=== PATIENT | male | born 1960 | race Two or more races ===

== ENCOUNTER 2021-03-25 13:28 | Inpatient (IN) | payer OTHER ==
[2021-03-25 15:23] VITALS: BMI 25.9
[2021-03-25] MEDS ORDERED: MAGNESIUM HYDROX 2400MG/30ML ORAL SUSPENSION 30 ML CUP PO PRN (16:11)
[2021-03-25] MEDS ORDERED: clonazePAM 0.5 MG ODT TABLETS SL PRN (16:11)
[2021-03-25] MEDS ORDERED: NALOXONE (NARCAN) HCL 4 MG/0.1 ML SPRAY NS PRN (16:11)
[2021-03-25] MEDS ORDERED: MAG HYDROX/AL HYDROX/SIMETH 30 ML UNIT-DOSE CUP PO PRN (16:11)
[2021-03-25] MEDS ORDERED: MAGNESIUM CITRATE 300 ML BOTTLE PO PRN (16:11)
[2021-03-25] MEDS ORDERED: cloNIDine HCL 0.1 MG TABLET PO PRN (16:11)
[2021-03-25] MEDS ORDERED: methaDONE HCL 10 MG TABLET (FOR DETOX USE ONLY) PO ONE (16:11)
[2021-03-25] MEDS ORDERED: NICOTINE 10 MG CARTRIDGE (INHALER) IH PRN (16:11)
[2021-03-25] MEDS ORDERED: MENTHOL/PHENOL 1 EACH UD MM PRN (16:11)
[2021-03-25] MEDS ORDERED: IBUPROFEN 400 MG TABLET (FP) PO PRN (16:11)
[2021-03-25] MEDS ORDERED: ONDANSETRON *ODT* 4 MG TABLET SL PRN (16:11)
[2021-03-25] MEDS ORDERED: BISMUTH SUBSALICYLATE 524 MG/30 ML PO PRN (16:11)
[2021-03-25] MEDS ORDERED: ACETAMINOPHEN 325 MG TABLET (FP) PO PRN ×2 (16:11)
[2021-03-25] MEDS: hydrOXYzine PAMOATE 25 MG CAPSULE (FP) PO SCH ×2 (17:44→22:13)
[2021-03-25] MEDS: NICOTINE 21 MG/24 HOURS TOPICAL PATCH TD SCH ×2 (18:08→18:29)
[2021-03-25] MEDS: THIAMINE HCL 100 MG TABLET (FP) PO SCH (22:13)
[2021-03-25] MEDS: MELATONIN 5 MG TABLETS PO SCH (22:13)
[2021-03-25] MEDS: diazePAM 5 MG TABLET PO PRN (22:17)
[2021-03-25] MEDS ORDERED: diazePAM 5 MG TABLET PO SCH (23:00)
[2021-03-26] MEDS: hydrOXYzine PAMOATE 25 MG CAPSULE (FP) PO SCH ×5 (06:20→22:31)
[2021-03-26] MEDS: diazePAM 5 MG TABLET PO PRN ×3 (06:22→23:04)
[2021-03-26] MEDS ORDERED: methaDONE HCL 10 MG TABLET (FOR DETOX USE ONLY) ONE ×2 (09:21→12:54)
[2021-03-26] MEDS: NICOTINE 21 MG/24 HOURS TOPICAL PATCH TD SCH (10:43)
[2021-03-26 11:43] LABS: HEMATOCRIT 40.4 % (35.4-49); HEMOGLOBIN 13.7 GM/dL (11.7-16.9); MCH 30.2 pg (25.7-33.7); MEAN CELL VOLUME 88.8 fl (80-96); MEAN PLT VOLUME 7.8 fl (7.5-11.1); PLATELET COUNT 258 10^3/uL (134-434); RBC 4.55 M/mm3 (4.00-5.60); RDW 12.8 % (11.9-15.9); WHITE BLOOD COUNT 13.5 K/mm3 (4.0-10.0)
[2021-03-26] MEDS: ASPIRIN 81 MG CHEWABLE TABLETS PO SCH (11:53)
[2021-03-26] MEDS: amLODIPine BESYLATE 10 MG TABLET (FP) PO SCH (11:53)
[2021-03-26] MEDS: LISINOPRIL 5 MG TABLET PO SCH (11:53)
[2021-03-26 12:02] LABS: CALCIUM 9.3 mg/dL (8.5-10.1)
[2021-03-26 12:03] LABS: ALBUMIN 3.5 g/dl (3.4-5.0); BLOOD UREA NITROGEN 15.6 mg/dL (7-18)
[2021-03-26 12:07] LABS: BILIRUBIN,TOTAL 0.6 mg/dL (0.2-1); TOT PROT 7.2 g/dl (6.4-8.2)
[2021-03-26] MEDS: metFORMIN HCL 500 MG TABLET (FP) PO SCH (17:37)
[2021-03-26] MEDS: INSULIN SLIDING SCALE (NOVOLOG) 1 VIAL SQ SCH ×2 (17:38→22:35)
[2021-03-26] MEDS: THIAMINE HCL 100 MG TABLET (FP) PO SCH (22:31)
[2021-03-26] MEDS: MELATONIN 5 MG TABLETS PO SCH (22:34)
[2021-03-27] MEDS ORDERED: diazePAM 5 MG TABLET PO SCH (06:00)
[2021-03-27] MEDS: hydrOXYzine PAMOATE 25 MG CAPSULE (FP) PO SCH ×5 (06:26→22:45)
[2021-03-27] MEDS: diazePAM 5 MG TABLET PO PRN ×4 (06:26→22:54)
[2021-03-27] MEDS: metFORMIN HCL 500 MG TABLET (FP) PO SCH ×2 (06:26→18:13)
[2021-03-27] MEDS: INSULIN SLIDING SCALE (NOVOLOG) 1 VIAL SQ SCH ×4 (06:30→22:49)
[2021-03-27] MEDS ORDERED: INSULIN SLIDING SCALE (NOVOLOG) 1 VIAL SQ ONE (07:34)
[2021-03-27] MEDS ORDERED: methaDONE HCL 10 MG TABLET (FOR DETOX USE ONLY) PO ONE (10:00)
[2021-03-27] MEDS: LISINOPRIL 5 MG TABLET PO SCH (10:23)
[2021-03-27] MEDS: ASPIRIN 81 MG CHEWABLE TABLETS PO SCH (10:23)
[2021-03-27] MEDS: NICOTINE 21 MG/24 HOURS TOPICAL PATCH TD SCH ×2 (10:23→10:25)
[2021-03-27] MEDS: amLODIPine BESYLATE 10 MG TABLET (FP) PO SCH (10:23)
[2021-03-27] MEDS: THIAMINE HCL 100 MG TABLET (FP) PO SCH (22:45)
[2021-03-27] MEDS: INSULIN (LEVEMIR) 100 UNITS/ML UNITS SQ SCH (22:45)
[2021-03-27] MEDS: MELATONIN 5 MG TABLETS PO SCH (22:45)
[2021-03-28] MEDS ORDERED: diazePAM 5 MG TABLET PO SCH (06:00)
[2021-03-28] MEDS: diazePAM 5 MG TABLET PO PRN (06:57)
[2021-03-28] MEDS: metFORMIN HCL 500 MG TABLET (FP) PO SCH ×2 (06:58→17:48)
[2021-03-28] MEDS: hydrOXYzine PAMOATE 25 MG CAPSULE (FP) PO SCH (06:58)
[2021-03-28] MEDS: INSULIN SLIDING SCALE (NOVOLOG) 1 VIAL SQ SCH ×4 (07:01→23:00)
[2021-03-28] MEDS ORDERED: INSULIN SLIDING SCALE (NOVOLOG) 1 VIAL SQ ONE (07:13)
[2021-03-28] MEDS ORDERED: methaDONE HCL 10 MG TABLET (FOR DETOX USE ONLY) ONE (08:43)
[2021-03-28] MEDS: NICOTINE 21 MG/24 HOURS TOPICAL PATCH TD SCH (10:27)
[2021-03-28] MEDS: ASPIRIN 81 MG CHEWABLE TABLETS PO SCH (10:28)
[2021-03-28] MEDS: amLODIPine BESYLATE 10 MG TABLET (FP) PO SCH (10:28)
[2021-03-28] MEDS: LISINOPRIL 5 MG TABLET PO SCH (10:28)
[2021-03-28] MEDS: hydrOXYzine PAMOATE 25 MG CAPSULE (FP) PO PRN (18:58)
[2021-03-28] MEDS: MELATONIN 5 MG TABLETS PO SCH (22:38)
[2021-03-28] MEDS: cloNIDine HCL 0.1 MG TABLET PO PRN (22:38)
[2021-03-28] MEDS: METHOCARBAMOL 500 MG TABLET PO PRN (22:38)
[2021-03-28] MEDS: THIAMINE HCL 100 MG TABLET (FP) PO SCH (22:38)
[2021-03-28] MEDS: INSULIN (LEVEMIR) 100 UNITS/ML UNITS SQ SCH (22:56)
[2021-03-29] MEDS ORDERED: diazePAM 5 MG TABLET PO ONE (06:00)
[2021-03-29] MEDS: hydrOXYzine PAMOATE 25 MG CAPSULE (FP) PO PRN (06:37)
[2021-03-29] MEDS: METHOCARBAMOL 500 MG TABLET PO PRN (06:38)
[2021-03-29] MEDS: metFORMIN HCL 500 MG TABLET (FP) PO SCH ×2 (06:38→17:48)
[2021-03-29] MEDS: INSULIN SLIDING SCALE (NOVOLOG) 1 VIAL SQ SCH ×4 (06:45→23:27)
[2021-03-29] MEDS ORDERED: INSULIN SLIDING SCALE (NOVOLOG) 1 VIAL SQ ONE (06:56)
[2021-03-29] MEDS ORDERED: methaDONE HCL 10 MG TABLET (FOR DETOX USE ONLY) PO ONE (10:00)
[2021-03-29] MEDS: LISINOPRIL 5 MG TABLET PO SCH (10:22)
[2021-03-29] MEDS: ASPIRIN 81 MG CHEWABLE TABLETS PO SCH (10:23)
[2021-03-29] MEDS: amLODIPine BESYLATE 10 MG TABLET (FP) PO SCH (10:23)
[2021-03-29] MEDS: NICOTINE 21 MG/24 HOURS TOPICAL PATCH TD SCH (10:24)
[2021-03-29] MEDS: INSULIN (LEVEMIR) 100 UNITS/ML UNITS SQ SCH (23:25)
[2021-03-29] MEDS: MELATONIN 5 MG TABLETS PO SCH (23:26)
[2021-03-29] MEDS: THIAMINE HCL 100 MG TABLET (FP) PO SCH (23:27)
[2021-03-30] MEDS: THIAMINE HCL 100 MG TABLET (FP) PO SCH (00:02)
[2021-03-30] MEDS: MELATONIN 5 MG TABLETS PO SCH (00:02)
[2021-03-30] MEDS: METHOCARBAMOL 500 MG TABLET PO PRN (00:03)
[2021-03-30] MEDS: INSULIN SLIDING SCALE (NOVOLOG) 1 VIAL SQ SCH ×2 (00:04→07:07)
[2021-03-30] MEDS: INSULIN (LEVEMIR) 100 UNITS/ML UNITS SQ SCH (00:06)
[2021-03-30] MEDS: metFORMIN HCL 500 MG TABLET (FP) PO SCH (06:06)
[2021-03-30 09:31] VITALS: BP 106/59; PULSE 71; TEMP 97.5
[2021-03-30] MEDS: ASPIRIN 81 MG CHEWABLE TABLETS PO SCH (09:31)
[2021-03-30] MEDS: LISINOPRIL 5 MG TABLET PO SCH (09:31)
[2021-03-30] MEDS: amLODIPine BESYLATE 10 MG TABLET (FP) PO SCH (09:31)
[2021-03-30] MEDS: cloNIDine HCL 0.1 MG TABLET PO PRN (09:33)
== END 2021-03-30 09:45 | disposition other institution (70) | DRG 773 ==
LOC: YASAS 13:28 → Y3N 15:55
PROVIDERS: ADMIT Allergy & Immunology; ATTEND Allergy & Immunology
PROC: HZ2ZZZZ Detoxification Services for Substance Abuse Treatment (ICD-10-PCS; principal; 2021-03-25)
DX: F10.230 Alcohol dependence with withdrawal, uncomplicated (principal); F11.23 Opioid dependence with withdrawal; F14.20 Cocaine dependence, uncomplicated; F17.210 Nicotine dependence, cigarettes, uncomplicated; I10 Essential (primary) hypertension; E11.65 Type 2 diabetes mellitus with hyperglycemia; Z79.4 Long term (current) use of insulin
CPT/HCPCS: 36415; 80053; 82962; 84132; 85027; 86780; C9803; J0735; U0003; U0005

== ENCOUNTER 2021-03-30 09:14 | Inpatient (IN) | payer OTHER ==
[2021-03-30] MEDS ORDERED: P-EPHED 60MG/TRIPROLIDI 2.5MG TABLET PO PRN (11:09)
[2021-03-30] MEDS ORDERED: MAGNESIUM CITRATE 300 ML BOTTLE PO PRN (11:09)
[2021-03-30] MEDS ORDERED: LOPERAMIDE HCL 2 MG CAPSULE PO PRN (11:09)
[2021-03-30] MEDS ORDERED: MENTHOL/PHENOL 1 EACH UD MM PRN (11:09)
[2021-03-30] MEDS: hydrOXYzine PAMOATE 25 MG CAPSULE (FP) PO PRN ×2 (12:34→18:16)
[2021-03-30] MEDS: METHOCARBAMOL 500 MG TABLET PO PRN ×2 (12:34→18:16)
[2021-03-30] MEDS: IBUPROFEN 400 MG TABLET (FP) PO PRN (12:35)
[2021-03-30] MEDS: INSULIN SLIDING SCALE (NOVOLOG) 1 VIAL SQ SCH ×2 (16:52→21:45)
[2021-03-30] MEDS: NICOTINE 10 MG CARTRIDGE (INHALER) IH PRN (16:52)
[2021-03-30] MEDS ORDERED: INSULIN (NOVOLOG) ASPART 100 UNITS/ML 10ML VIAL ONE ×2 (16:58→21:47)
[2021-03-30] MEDS: MELATONIN 5 MG TABLETS PO SCH (21:42)
[2021-03-30] MEDS: THIAMINE HCL 100 MG TABLET (FP) PO SCH (21:42)
[2021-03-30] MEDS: metFORMIN HCL 500 MG TABLET (FP) PO SCH (21:43)
[2021-03-30] MEDS: INSULIN (LEVEMIR) 100 UNITS/ML UNITS SQ SCH (21:45)
[2021-03-31] MEDS: INSULIN SLIDING SCALE (NOVOLOG) 1 VIAL SQ SCH ×4 (06:40→21:00)
[2021-03-31] MEDS: MAG HYDROX/AL HYDROX/SIMETH 30 ML UNIT-DOSE CUP PO PRN (07:34)
[2021-03-31] MEDS: IBUPROFEN 400 MG TABLET (FP) PO PRN ×2 (07:34→16:34)
[2021-03-31] MEDS: amLODIPine BESYLATE 10 MG TABLET (FP) PO SCH (09:10)
[2021-03-31] MEDS: METHOCARBAMOL 500 MG TABLET PO PRN ×4 (09:10→21:00)
[2021-03-31] MEDS: metFORMIN HCL 500 MG TABLET (FP) PO SCH ×2 (09:10→21:00)
[2021-03-31] MEDS: ASPIRIN 81 MG CHEWABLE TABLETS PO SCH (09:10)
[2021-03-31] MEDS: hydrOXYzine PAMOATE 25 MG CAPSULE (FP) PO PRN ×2 (09:10→14:04)
[2021-03-31] MEDS: PRENATAL VITAMINS W/ FOLIC ACID TABLET (FP) PO SCH (09:10)
[2021-03-31] MEDS: NICOTINE 21 MG/24 HOURS TOPICAL PATCH TD SCH (09:10)
[2021-03-31] MEDS: LISINOPRIL 5 MG TABLET PO SCH (09:10)
[2021-03-31] MEDS ORDERED: INSULIN (NOVOLOG) ASPART 100 UNITS/ML 10ML VIAL ONE ×2 (11:52→16:45)
[2021-03-31] MEDS: ACETAMINOPHEN 325 MG TABLET (FP) PO PRN ×2 (11:55→18:42)
[2021-03-31] MEDS: GABAPENTIN 100 MG CAPSULE PO SCH (21:00)
[2021-03-31] MEDS: INSULIN (LEVEMIR) 100 UNITS/ML UNITS SQ SCH (21:00)
[2021-03-31] MEDS: THIAMINE HCL 100 MG TABLET (FP) PO SCH (21:00)
[2021-03-31] MEDS: MELATONIN 5 MG TABLETS PO SCH (21:00)
[2021-03-31] MEDS: MAGNESIUM HYDROX 2400MG/30ML ORAL SUSPENSION 30 ML CUP PO PRN (22:55)
[2021-04-01] MEDS: hydrOXYzine PAMOATE 25 MG CAPSULE (FP) PO PRN ×2 (00:42→09:31)
[2021-04-01] MEDS: GABAPENTIN 100 MG CAPSULE PO SCH (06:29)
[2021-04-01] MEDS: INSULIN SLIDING SCALE (NOVOLOG) 1 VIAL SQ SCH ×4 (06:30→21:24)
[2021-04-01] MEDS: PRENATAL VITAMINS W/ FOLIC ACID TABLET (FP) PO SCH (09:31)
[2021-04-01] MEDS: ASPIRIN 81 MG CHEWABLE TABLETS PO SCH (09:31)
[2021-04-01] MEDS: amLODIPine BESYLATE 10 MG TABLET (FP) PO SCH (09:31)
[2021-04-01] MEDS: LISINOPRIL 5 MG TABLET PO SCH (09:31)
[2021-04-01] MEDS: NICOTINE 21 MG/24 HOURS TOPICAL PATCH TD SCH (09:31)
[2021-04-01] MEDS: metFORMIN HCL 500 MG TABLET (FP) PO SCH ×2 (09:32→22:36)
[2021-04-01] MEDS: METHOCARBAMOL 500 MG TABLET PO PRN (09:33)
[2021-04-01] MEDS: MAGNESIUM HYDROX 2400MG/30ML ORAL SUSPENSION 30 ML CUP PO PRN (10:54)
[2021-04-01] MEDS ORDERED: INSULIN (NOVOLOG) ASPART 100 UNITS/ML 10ML VIAL ONE (12:03)
[2021-04-01] MEDS: GABAPENTIN 400 MG CAPSULE PO SCH ×2 (13:12→21:27)
[2021-04-01] MEDS: BACLOFEN 10 MG TABLET (FP) PO SCH ×2 (13:12→21:27)
[2021-04-01] MEDS ORDERED: PT OWN MED DRAWER 7, Y5N ONE (15:13)
[2021-04-01] MEDS ORDERED: BUPRENORPHINE/NALOXONE 4 MG/1 MG FILM PACKET SL ONE (16:00)
[2021-04-01] MEDS: IBUPROFEN 400 MG TABLET (FP) PO PRN (18:57)
[2021-04-01] MEDS: THIAMINE HCL 100 MG TABLET (FP) PO SCH (21:27)
[2021-04-01] MEDS: MELATONIN 5 MG TABLETS PO SCH (21:27)
[2021-04-01] MEDS: INSULIN (LEVEMIR) 100 UNITS/ML UNITS SQ SCH (22:36)
[2021-04-02] MEDS: GABAPENTIN 400 MG CAPSULE PO SCH ×3 (06:51→21:43)
[2021-04-02] MEDS: BACLOFEN 10 MG TABLET (FP) PO SCH ×3 (06:51→21:43)
[2021-04-02] MEDS: INSULIN SLIDING SCALE (NOVOLOG) 1 VIAL SQ SCH ×4 (06:53→21:44)
[2021-04-02] MEDS: guaiFENesin 200 MG/10 ML 10 ML UNIT-DOSE CUPS PO PRN (06:54)
[2021-04-02] MEDS: PRENATAL VITAMINS W/ FOLIC ACID TABLET (FP) PO SCH (09:28)
[2021-04-02] MEDS: NICOTINE 21 MG/24 HOURS TOPICAL PATCH TD SCH (09:29)
[2021-04-02] MEDS: amLODIPine BESYLATE 10 MG TABLET (FP) PO SCH (09:29)
[2021-04-02] MEDS: metFORMIN HCL 500 MG TABLET (FP) PO SCH ×2 (09:29→21:43)
[2021-04-02] MEDS: LISINOPRIL 5 MG TABLET PO SCH (09:29)
[2021-04-02] MEDS: ASPIRIN 81 MG CHEWABLE TABLETS PO SCH (09:29)
[2021-04-02] MEDS ORDERED: BUPRENORPHINE/NALOXONE 4 MG/1 MG FILM PACKET SL SCH (10:00)
[2021-04-02 10:21] LABS: BASO % 0.3 % (0-2.0); EOS % 3.8 % (0-4.5); HEMATOCRIT 43.4 % (35.4-49); LYMPH % 26.4 % (8-40); MCH 30.2 pg (25.7-33.7); MCHC 34.5 g/dl (32.0-35.9); MEAN CELL VOLUME 87.6 fl (80-96); MEAN PLT VOLUME 7.7 fl (7.5-11.1); MONO % 7.2 % (3.8-10.2); NEUT % 62.3 % (42.8-82.8); PLATELET COUNT 273 10^3/uL (134-434); RBC 4.95 M/mm3 (4.00-5.60); RDW 12.8 % (11.9-15.9); WHITE BLOOD COUNT 11.1 K/mm3 (4.0-10.0)
[2021-04-02] MEDS ORDERED: INSULIN (NOVOLOG) ASPART 100 UNITS/ML 10ML VIAL ONE (12:05)
[2021-04-02] MEDS: IBUPROFEN 400 MG TABLET (FP) PO PRN (12:08)
[2021-04-02] MEDS ORDERED: BUPRENORPHINE/NALOXONE 4 MG/1 MG FILM PACKET SL ONE (15:48)
[2021-04-02] MEDS: MELATONIN 5 MG TABLETS PO SCH (21:43)
[2021-04-02] MEDS: THIAMINE HCL 100 MG TABLET (FP) PO SCH (21:43)
[2021-04-02] MEDS: INSULIN (LEVEMIR) 100 UNITS/ML UNITS SQ SCH (21:44)
[2021-04-03] MEDS: GABAPENTIN 400 MG CAPSULE PO SCH ×3 (06:47→21:24)
[2021-04-03] MEDS: BACLOFEN 10 MG TABLET (FP) PO SCH ×3 (06:47→21:24)
[2021-04-03] MEDS: INSULIN SLIDING SCALE (NOVOLOG) 1 VIAL SQ SCH ×4 (06:49→21:26)
[2021-04-03] MEDS: metFORMIN HCL 500 MG TABLET (FP) PO SCH ×2 (10:04→21:24)
[2021-04-03] MEDS: LISINOPRIL 5 MG TABLET PO SCH (10:04)
[2021-04-03] MEDS: BUPRENORPHINE/NALOXONE 8 MG/2 MG FILM PACKET SL SCH (10:04)
[2021-04-03] MEDS: amLODIPine BESYLATE 10 MG TABLET (FP) PO SCH (10:04)
[2021-04-03] MEDS: PRENATAL VITAMINS W/ FOLIC ACID TABLET (FP) PO SCH (10:04)
[2021-04-03] MEDS: ASPIRIN 81 MG CHEWABLE TABLETS PO SCH (10:04)
[2021-04-03] MEDS: hydrOXYzine PAMOATE 25 MG CAPSULE (FP) PO PRN (10:06)
[2021-04-03] MEDS: IBUPROFEN 400 MG TABLET (FP) PO PRN ×2 (10:06→16:24)
[2021-04-03] MEDS: NICOTINE 21 MG/24 HOURS TOPICAL PATCH TD SCH (10:50)
[2021-04-03] MEDS: MELATONIN 5 MG TABLETS PO SCH (21:24)
[2021-04-03] MEDS: THIAMINE HCL 100 MG TABLET (FP) PO SCH (21:24)
[2021-04-03] MEDS: INSULIN (LEVEMIR) 100 UNITS/ML UNITS SQ SCH (21:26)
[2021-04-03] MEDS: MAG HYDROX/AL HYDROX/SIMETH 30 ML UNIT-DOSE CUP PO PRN (21:29)
[2021-04-03] MEDS ORDERED: INSULIN (NOVOLOG) ASPART 100 UNITS/ML 10ML VIAL ONE (21:48)
[2021-04-04] MEDS: BACLOFEN 10 MG TABLET (FP) PO SCH ×3 (06:47→21:17)
[2021-04-04] MEDS: GABAPENTIN 400 MG CAPSULE PO SCH ×3 (06:47→21:17)
[2021-04-04] MEDS: INSULIN SLIDING SCALE (NOVOLOG) 1 VIAL SQ SCH ×4 (06:48→21:19)
[2021-04-04] MEDS: hydrOXYzine PAMOATE 25 MG CAPSULE (FP) PO PRN (10:11)
[2021-04-04] MEDS: NICOTINE 21 MG/24 HOURS TOPICAL PATCH TD SCH (10:11)
[2021-04-04] MEDS: PRENATAL VITAMINS W/ FOLIC ACID TABLET (FP) PO SCH (10:11)
[2021-04-04] MEDS: ASPIRIN 81 MG CHEWABLE TABLETS PO SCH (10:11)
[2021-04-04] MEDS: BUPRENORPHINE/NALOXONE 8 MG/2 MG FILM PACKET SL SCH (10:11)
[2021-04-04] MEDS: LISINOPRIL 5 MG TABLET PO SCH (10:11)
[2021-04-04] MEDS: amLODIPine BESYLATE 10 MG TABLET (FP) PO SCH (10:11)
[2021-04-04] MEDS: metFORMIN HCL 500 MG TABLET (FP) PO SCH ×2 (10:11→21:17)
[2021-04-04] MEDS: IBUPROFEN 400 MG TABLET (FP) PO PRN ×2 (10:13→16:36)
[2021-04-04] MEDS ORDERED: INSULIN (NOVOLOG) ASPART 100 UNITS/ML 10ML VIAL ONE ×3 (12:17→21:56)
[2021-04-04] MEDS: MELATONIN 5 MG TABLETS PO SCH (21:17)
[2021-04-04] MEDS: THIAMINE HCL 100 MG TABLET (FP) PO SCH (21:17)
[2021-04-04] MEDS: INSULIN (LEVEMIR) 100 UNITS/ML UNITS SQ SCH (21:19)
[2021-04-05] MEDS: BACLOFEN 10 MG TABLET (FP) PO SCH (06:34)
[2021-04-05] MEDS: GABAPENTIN 400 MG CAPSULE PO SCH ×3 (06:34→21:29)
[2021-04-05] MEDS ORDERED: INSULIN (NOVOLOG) ASPART 100 UNITS/ML 10ML VIAL ONE ×3 (07:01→21:55)
[2021-04-05] MEDS: INSULIN SLIDING SCALE (NOVOLOG) 1 VIAL SQ SCH ×4 (07:36→21:35)
[2021-04-05] MEDS: NICOTINE 21 MG/24 HOURS TOPICAL PATCH TD SCH (09:52)
[2021-04-05] MEDS: PRENATAL VITAMINS W/ FOLIC ACID TABLET (FP) PO SCH (09:52)
[2021-04-05] MEDS: metFORMIN HCL 500 MG TABLET (FP) PO SCH ×2 (09:53→21:29)
[2021-04-05] MEDS: ASPIRIN 81 MG CHEWABLE TABLETS PO SCH (09:53)
[2021-04-05] MEDS: LISINOPRIL 5 MG TABLET PO SCH (09:53)
[2021-04-05] MEDS: amLODIPine BESYLATE 10 MG TABLET (FP) PO SCH (09:53)
[2021-04-05] MEDS: BUPRENORPHINE/NALOXONE 12 MG-3 MG SL FILM PACKET SL SCH (10:43)
[2021-04-05] MEDS: METHOCARBAMOL 500 MG TABLET PO SCH ×2 (14:36→21:29)
[2021-04-05] MEDS: MAGNESIUM HYDROX 2400MG/30ML ORAL SUSPENSION 30 ML CUP PO PRN (16:31)
[2021-04-05] MEDS: THIAMINE HCL 100 MG TABLET (FP) PO SCH (21:29)
[2021-04-05] MEDS: MELATONIN 5 MG TABLETS PO SCH (21:29)
[2021-04-05] MEDS: NICOTINE 10 MG CARTRIDGE (INHALER) IH PRN (21:30)
[2021-04-05] MEDS: INSULIN (LEVEMIR) 100 UNITS/ML UNITS SQ SCH (21:34)
[2021-04-06] MEDS: GABAPENTIN 400 MG CAPSULE PO SCH ×3 (06:38→21:16)
[2021-04-06] MEDS: METHOCARBAMOL 500 MG TABLET PO SCH ×3 (06:38→21:16)
[2021-04-06] MEDS: INSULIN SLIDING SCALE (NOVOLOG) 1 VIAL SQ SCH ×4 (06:40→21:19)
[2021-04-06] MEDS: metFORMIN HCL 500 MG TABLET (FP) PO SCH ×2 (10:07→21:16)
[2021-04-06] MEDS: amLODIPine BESYLATE 10 MG TABLET (FP) PO SCH (10:07)
[2021-04-06] MEDS: NICOTINE 21 MG/24 HOURS TOPICAL PATCH TD SCH (10:07)
[2021-04-06] MEDS: BUPRENORPHINE/NALOXONE 12 MG-3 MG SL FILM PACKET SL SCH (10:07)
[2021-04-06] MEDS: PRENATAL VITAMINS W/ FOLIC ACID TABLET (FP) PO SCH (10:07)
[2021-04-06] MEDS: ASPIRIN 81 MG CHEWABLE TABLETS PO SCH (10:07)
[2021-04-06] MEDS: LISINOPRIL 5 MG TABLET PO SCH (10:08)
[2021-04-06] MEDS: IBUPROFEN 400 MG TABLET (FP) PO PRN (10:10)
[2021-04-06] MEDS: NICOTINE 10 MG CARTRIDGE (INHALER) IH PRN ×2 (12:07→20:52)
[2021-04-06] MEDS: THIAMINE HCL 100 MG TABLET (FP) PO SCH (21:16)
[2021-04-06] MEDS: MELATONIN 5 MG TABLETS PO SCH (21:16)
[2021-04-06] MEDS: INSULIN (LEVEMIR) 100 UNITS/ML UNITS SQ SCH (21:17)
[2021-04-07] MEDS: METHOCARBAMOL 500 MG TABLET PO SCH ×3 (06:26→21:41)
[2021-04-07] MEDS: GABAPENTIN 400 MG CAPSULE PO SCH ×3 (06:26→21:37)
[2021-04-07] MEDS: NICOTINE 10 MG CARTRIDGE (INHALER) IH PRN ×5 (06:30→21:42)
[2021-04-07] MEDS: INSULIN SLIDING SCALE (NOVOLOG) 1 VIAL SQ SCH ×4 (07:46→21:38)
[2021-04-07] MEDS: PRENATAL VITAMINS W/ FOLIC ACID TABLET (FP) PO SCH (09:49)
[2021-04-07] MEDS: BUPRENORPHINE/NALOXONE 12 MG-3 MG SL FILM PACKET SL SCH (09:49)
[2021-04-07] MEDS: NICOTINE 21 MG/24 HOURS TOPICAL PATCH TD SCH (09:49)
[2021-04-07] MEDS: LISINOPRIL 5 MG TABLET PO SCH (09:49)
[2021-04-07] MEDS: metFORMIN HCL 500 MG TABLET (FP) PO SCH ×2 (09:49→21:37)
[2021-04-07] MEDS: amLODIPine BESYLATE 10 MG TABLET (FP) PO SCH (09:49)
[2021-04-07] MEDS: ASPIRIN 81 MG CHEWABLE TABLETS PO SCH (09:50)
[2021-04-07] MEDS: IBUPROFEN 400 MG TABLET (FP) PO PRN ×2 (13:36→19:48)
[2021-04-07] MEDS: guaiFENesin 200 MG/10 ML 10 ML UNIT-DOSE CUPS PO PRN (14:21)
[2021-04-07] MEDS: ACETAMINOPHEN 325 MG TABLET (FP) PO PRN (16:49)
[2021-04-07] MEDS: THIAMINE HCL 100 MG TABLET (FP) PO SCH (21:36)
[2021-04-07] MEDS: MELATONIN 5 MG TABLETS PO SCH (21:36)
[2021-04-07] MEDS: INSULIN (LEVEMIR) 100 UNITS/ML UNITS SQ SCH (21:37)
[2021-04-08] MEDS: GABAPENTIN 400 MG CAPSULE PO SCH ×3 (06:43→21:18)
[2021-04-08] MEDS: METHOCARBAMOL 500 MG TABLET PO SCH (06:43)
[2021-04-08] MEDS: INSULIN SLIDING SCALE (NOVOLOG) 1 VIAL SQ SCH ×4 (07:46→21:20)
[2021-04-08] MEDS: LISINOPRIL 5 MG TABLET PO SCH (10:10)
[2021-04-08] MEDS: PRENATAL VITAMINS W/ FOLIC ACID TABLET (FP) PO SCH (10:10)
[2021-04-08] MEDS: metFORMIN HCL 500 MG TABLET (FP) PO SCH ×2 (10:11→21:18)
[2021-04-08] MEDS: ASPIRIN 81 MG CHEWABLE TABLETS PO SCH (10:11)
[2021-04-08] MEDS: BUPRENORPHINE/NALOXONE 12 MG-3 MG SL FILM PACKET SL SCH (10:11)
[2021-04-08] MEDS: amLODIPine BESYLATE 10 MG TABLET (FP) PO SCH (10:11)
[2021-04-08] MEDS: NICOTINE 21 MG/24 HOURS TOPICAL PATCH TD SCH (10:11)
[2021-04-08] MEDS: NAPROXEN 500 MG TABLET PO SCH ×2 (10:41→21:18)
[2021-04-08] MEDS ORDERED: INSULIN (NOVOLOG) ASPART 100 UNITS/ML 10ML VIAL ONE ×3 (12:14→22:42)
[2021-04-08] MEDS: METHOCARBAMOL 750 MG TAB PO SCH ×2 (15:30→21:18)
[2021-04-08] MEDS: THIAMINE HCL 100 MG TABLET (FP) PO SCH (21:18)
[2021-04-08] MEDS: MELATONIN 5 MG TABLETS PO SCH (21:18)
[2021-04-08] MEDS: INSULIN (LEVEMIR) 100 UNITS/ML UNITS SQ SCH (21:21)
[2021-04-09] MEDS: METHOCARBAMOL 750 MG TAB PO SCH ×3 (06:25→21:26)
[2021-04-09] MEDS: GABAPENTIN 400 MG CAPSULE PO SCH ×3 (06:25→21:26)
[2021-04-09] MEDS ORDERED: INSULIN (NOVOLOG) ASPART 100 UNITS/ML 10ML VIAL ONE ×3 (06:53→16:42)
[2021-04-09] MEDS: INSULIN SLIDING SCALE (NOVOLOG) 1 VIAL SQ SCH ×4 (07:04→21:29)
[2021-04-09] MEDS: PRENATAL VITAMINS W/ FOLIC ACID TABLET (FP) PO SCH (09:44)
[2021-04-09] MEDS: LISINOPRIL 5 MG TABLET PO SCH (09:44)
[2021-04-09] MEDS: BUPRENORPHINE/NALOXONE 12 MG-3 MG SL FILM PACKET SL SCH (09:44)
[2021-04-09] MEDS: NAPROXEN 500 MG TABLET PO SCH ×2 (09:44→21:26)
[2021-04-09] MEDS: amLODIPine BESYLATE 10 MG TABLET (FP) PO SCH (09:44)
[2021-04-09] MEDS: metFORMIN HCL 500 MG TABLET (FP) PO SCH ×2 (09:45→21:26)
[2021-04-09] MEDS: NICOTINE 10 MG CARTRIDGE (INHALER) IH PRN ×3 (09:45→21:29)
[2021-04-09] MEDS: NICOTINE 21 MG/24 HOURS TOPICAL PATCH TD SCH (09:45)
[2021-04-09] MEDS: ASPIRIN 81 MG CHEWABLE TABLETS PO SCH (09:45)
[2021-04-09] MEDS: ACETAMINOPHEN 325 MG TABLET (FP) PO PRN (11:57)
[2021-04-09] MEDS: MAGNESIUM HYDROX 2400MG/30ML ORAL SUSPENSION 30 ML CUP PO PRN (13:55)
[2021-04-09] MEDS: THIAMINE HCL 100 MG TABLET (FP) PO SCH (21:26)
[2021-04-09] MEDS: MELATONIN 5 MG TABLETS PO SCH (21:26)
[2021-04-09] MEDS: INSULIN (LEVEMIR) 100 UNITS/ML UNITS SQ SCH (21:30)
[2021-04-10] MEDS: GABAPENTIN 400 MG CAPSULE PO SCH ×3 (06:30→21:02)
[2021-04-10] MEDS: METHOCARBAMOL 750 MG TAB PO SCH ×3 (06:30→21:02)
[2021-04-10] MEDS: INSULIN SLIDING SCALE (NOVOLOG) 1 VIAL SQ SCH ×4 (06:32→21:05)
[2021-04-10] MEDS ORDERED: INSULIN (NOVOLOG) ASPART 100 UNITS/ML 10ML VIAL ONE ×5 (07:10→21:43)
[2021-04-10] MEDS: NICOTINE 10 MG CARTRIDGE (INHALER) IH PRN ×2 (07:48→10:01)
[2021-04-10] MEDS ORDERED: BENZOCAINE 20 % GEL TUBE MM PRN (09:05)
[2021-04-10] MEDS ORDERED: NICOTINE POLACRILEX 2 MG GUM BUC PRN (09:58)
[2021-04-10] MEDS: amLODIPine BESYLATE 10 MG TABLET (FP) PO SCH (10:00)
[2021-04-10] MEDS: BUPRENORPHINE/NALOXONE 12 MG-3 MG SL FILM PACKET SL SCH (10:00)
[2021-04-10] MEDS: LISINOPRIL 5 MG TABLET PO SCH (10:00)
[2021-04-10] MEDS: metFORMIN HCL 500 MG TABLET (FP) PO SCH ×2 (10:00→21:02)
[2021-04-10] MEDS: ASPIRIN 81 MG CHEWABLE TABLETS PO SCH (10:00)
[2021-04-10] MEDS: PRENATAL VITAMINS W/ FOLIC ACID TABLET (FP) PO SCH (10:00)
[2021-04-10] MEDS: NAPROXEN 500 MG TABLET PO SCH ×2 (10:00→21:02)
[2021-04-10] MEDS ORDERED: HYDROCORTISONE 0.5% TOPICAL OINTMENT TUBE TP PRN (10:04)
[2021-04-10] MEDS: AMOXICILLIN 500 MG CAPSULE (FP) PO SCH ×2 (10:46→21:01)
[2021-04-10] MEDS: HYDROCORTISONE 0.5% TOPICAL CREAM 30 GM TUBE TP PRN (12:55)
[2021-04-10] MEDS ORDERED: PT OWN MED DRAWER 7, Y5N ONE (17:48)
[2021-04-10] MEDS: ACETAMINOPHEN 325 MG TABLET (FP) PO PRN (17:49)
[2021-04-10] MEDS: MELATONIN 5 MG TABLETS PO SCH (21:01)
[2021-04-10] MEDS: THIAMINE HCL 100 MG TABLET (FP) PO SCH (21:01)
[2021-04-10] MEDS: INSULIN (LEVEMIR) 100 UNITS/ML UNITS SQ SCH (21:05)
[2021-04-10] MEDS ORDERED: INSULIN (LEVEMIR) 100 UNITS/ML UNITS SQ ONE (21:43)
[2021-04-11] MEDS: METHOCARBAMOL 750 MG TAB PO SCH ×3 (06:30→21:32)
[2021-04-11] MEDS: GABAPENTIN 400 MG CAPSULE PO SCH ×3 (06:30→21:32)
[2021-04-11] MEDS: INSULIN SLIDING SCALE (NOVOLOG) 1 VIAL SQ SCH ×4 (06:32→21:36)
[2021-04-11] MEDS: ASPIRIN 81 MG CHEWABLE TABLETS PO SCH (09:33)
[2021-04-11] MEDS: NAPROXEN 500 MG TABLET PO SCH ×2 (09:33→21:32)
[2021-04-11] MEDS: amLODIPine BESYLATE 10 MG TABLET (FP) PO SCH (09:33)
[2021-04-11] MEDS: metFORMIN HCL 500 MG TABLET (FP) PO SCH ×2 (09:33→17:27)
[2021-04-11] MEDS: AMOXICILLIN 500 MG CAPSULE (FP) PO SCH ×2 (09:33→21:32)
[2021-04-11] MEDS: PRENATAL VITAMINS W/ FOLIC ACID TABLET (FP) PO SCH (09:34)
[2021-04-11] MEDS: BUPRENORPHINE/NALOXONE 12 MG-3 MG SL FILM PACKET SL SCH (09:34)
[2021-04-11] MEDS: LISINOPRIL 5 MG TABLET PO SCH (09:34)
[2021-04-11] MEDS: NICOTINE 10 MG CARTRIDGE (INHALER) IH PRN ×3 (09:35→21:36)
[2021-04-11] MEDS ORDERED: INSULIN (NOVOLOG) ASPART 100 UNITS/ML 10ML VIAL ONE ×2 (12:10→16:25)
[2021-04-11] MEDS: ACETAMINOPHEN 325 MG TABLET (FP) PO PRN (16:26)
[2021-04-11] MEDS: THIAMINE HCL 100 MG TABLET (FP) PO SCH (21:31)
[2021-04-11] MEDS: MELATONIN 5 MG TABLETS PO SCH (21:31)
[2021-04-11] MEDS: HYDROCORTISONE 0.5% TOPICAL CREAM 30 GM TUBE TP PRN (21:32)
[2021-04-11] MEDS: INSULIN (LEVEMIR) 100 UNITS/ML UNITS SQ SCH (21:36)
[2021-04-12] MEDS: GABAPENTIN 400 MG CAPSULE PO SCH ×3 (06:18→21:11)
[2021-04-12] MEDS: metFORMIN HCL 500 MG TABLET (FP) PO SCH ×2 (06:19→17:07)
[2021-04-12] MEDS: METHOCARBAMOL 750 MG TAB PO SCH ×3 (06:19→21:11)
[2021-04-12] MEDS: NICOTINE 10 MG CARTRIDGE (INHALER) IH PRN ×3 (06:53→17:57)
[2021-04-12] MEDS ORDERED: INSULIN (NOVOLOG) ASPART 100 UNITS/ML 10ML VIAL ONE ×3 (07:14→21:58)
[2021-04-12] MEDS: INSULIN SLIDING SCALE (NOVOLOG) 1 VIAL SQ SCH ×4 (07:34→21:14)
[2021-04-12] MEDS: LISINOPRIL 5 MG TABLET PO SCH (09:53)
[2021-04-12] MEDS: NAPROXEN 500 MG TABLET PO SCH ×2 (09:53→21:12)
[2021-04-12] MEDS: amLODIPine BESYLATE 10 MG TABLET (FP) PO SCH (09:53)
[2021-04-12] MEDS: AMOXICILLIN 500 MG CAPSULE (FP) PO SCH ×2 (09:53→21:12)
[2021-04-12] MEDS: PRENATAL VITAMINS W/ FOLIC ACID TABLET (FP) PO SCH (09:53)
[2021-04-12] MEDS: ASPIRIN 81 MG CHEWABLE TABLETS PO SCH (09:53)
[2021-04-12] MEDS: BUPRENORPHINE/NALOXONE 12 MG-3 MG SL FILM PACKET SL SCH (09:53)
[2021-04-12] MEDS: THIAMINE HCL 100 MG TABLET (FP) PO SCH (21:12)
[2021-04-12] MEDS: MELATONIN 5 MG TABLETS PO SCH (21:12)
[2021-04-12] MEDS: INSULIN (LEVEMIR) 100 UNITS/ML UNITS SQ SCH (21:14)
[2021-04-13] MEDS: METHOCARBAMOL 750 MG TAB PO SCH ×3 (06:09→21:27)
[2021-04-13] MEDS: GABAPENTIN 400 MG CAPSULE PO SCH ×3 (06:09→21:27)
[2021-04-13] MEDS: metFORMIN HCL 500 MG TABLET (FP) PO SCH ×2 (06:10→17:59)
[2021-04-13] MEDS: INSULIN SLIDING SCALE (NOVOLOG) 1 VIAL SQ SCH ×4 (06:11→21:28)
[2021-04-13] MEDS: NICOTINE 10 MG CARTRIDGE (INHALER) IH PRN ×3 (06:41→21:28)
[2021-04-13] MEDS ORDERED: INSULIN (NOVOLOG) ASPART 100 UNITS/ML 10ML VIAL ONE ×4 (07:07→21:43)
[2021-04-13] MEDS: amLODIPine BESYLATE 10 MG TABLET (FP) PO SCH (09:55)
[2021-04-13] MEDS: NAPROXEN 500 MG TABLET PO SCH ×2 (09:55→21:27)
[2021-04-13] MEDS: BUPRENORPHINE/NALOXONE 12 MG-3 MG SL FILM PACKET SL SCH (09:55)
[2021-04-13] MEDS: AMOXICILLIN 500 MG CAPSULE (FP) PO SCH ×2 (09:55→21:27)
[2021-04-13] MEDS: PRENATAL VITAMINS W/ FOLIC ACID TABLET (FP) PO SCH (09:55)
[2021-04-13] MEDS: LISINOPRIL 5 MG TABLET PO SCH (09:55)
[2021-04-13] MEDS: ASPIRIN 81 MG CHEWABLE TABLETS PO SCH (09:55)
[2021-04-13] MEDS: ACETAMINOPHEN 325 MG TABLET (FP) PO PRN (11:46)
[2021-04-13] MEDS: MELATONIN 5 MG TABLETS PO SCH (21:27)
[2021-04-13] MEDS: THIAMINE HCL 100 MG TABLET (FP) PO SCH (21:27)
[2021-04-13] MEDS: HYDROCORTISONE 0.5% TOPICAL CREAM 30 GM TUBE TP PRN (21:28)
[2021-04-13] MEDS: INSULIN (LEVEMIR) 100 UNITS/ML UNITS SQ SCH (21:29)
[2021-04-13] MEDS ORDERED: INSULIN (LEVEMIR) 100 UNITS/ML UNITS SQ ONE (21:43)
[2021-04-14] MEDS: GABAPENTIN 400 MG CAPSULE PO SCH ×3 (06:05→21:12)
[2021-04-14] MEDS: INSULIN SLIDING SCALE (NOVOLOG) 1 VIAL SQ SCH ×4 (06:07→21:15)
[2021-04-14] MEDS: METHOCARBAMOL 750 MG TAB PO SCH ×3 (06:07→21:12)
[2021-04-14] MEDS: metFORMIN HCL 500 MG TABLET (FP) PO SCH ×2 (06:07→17:12)
[2021-04-14] MEDS: amLODIPine BESYLATE 10 MG TABLET (FP) PO SCH (09:41)
[2021-04-14] MEDS: PRENATAL VITAMINS W/ FOLIC ACID TABLET (FP) PO SCH (09:41)
[2021-04-14] MEDS: AMOXICILLIN 500 MG CAPSULE (FP) PO SCH ×2 (09:41→21:12)
[2021-04-14] MEDS: LISINOPRIL 5 MG TABLET PO SCH (09:41)
[2021-04-14] MEDS: BUPRENORPHINE/NALOXONE 12 MG-3 MG SL FILM PACKET SL SCH (09:41)
[2021-04-14] MEDS: ASPIRIN 81 MG CHEWABLE TABLETS PO SCH (09:41)
[2021-04-14] MEDS: NAPROXEN 500 MG TABLET PO SCH ×2 (09:41→21:12)
[2021-04-14] MEDS ORDERED: INSULIN (NOVOLOG) ASPART 100 UNITS/ML 10ML VIAL ONE ×3 (11:48→21:45)
[2021-04-14] MEDS: NICOTINE 10 MG CARTRIDGE (INHALER) IH PRN (11:49)
[2021-04-14] MEDS: ACETAMINOPHEN 325 MG TABLET (FP) PO PRN (16:24)
[2021-04-14] MEDS: MELATONIN 5 MG TABLETS PO SCH (21:12)
[2021-04-14] MEDS: THIAMINE HCL 100 MG TABLET (FP) PO SCH (21:12)
[2021-04-14] MEDS: INSULIN (LEVEMIR) 100 UNITS/ML UNITS SQ SCH (21:15)
[2021-04-14] MEDS ORDERED: INSULIN (LEVEMIR) 100 UNITS/ML UNITS SQ ONE (21:45)
[2021-04-15] MEDS: GABAPENTIN 400 MG CAPSULE PO SCH ×3 (06:29→21:45)
[2021-04-15] MEDS: METHOCARBAMOL 750 MG TAB PO SCH ×3 (06:29→21:45)
[2021-04-15] MEDS: metFORMIN HCL 500 MG TABLET (FP) PO SCH ×2 (06:30→17:29)
[2021-04-15] MEDS: INSULIN SLIDING SCALE (NOVOLOG) 1 VIAL SQ SCH ×4 (06:31→21:50)
[2021-04-15] MEDS: NICOTINE 10 MG CARTRIDGE (INHALER) IH PRN (09:49)
[2021-04-15] MEDS: BUPRENORPHINE/NALOXONE 12 MG-3 MG SL FILM PACKET SL SCH (09:49)
[2021-04-15] MEDS: PRENATAL VITAMINS W/ FOLIC ACID TABLET (FP) PO SCH (09:50)
[2021-04-15] MEDS: NAPROXEN 500 MG TABLET PO SCH ×2 (09:50→21:45)
[2021-04-15] MEDS: ASPIRIN 81 MG CHEWABLE TABLETS PO SCH (09:50)
[2021-04-15] MEDS: AMOXICILLIN 500 MG CAPSULE (FP) PO SCH ×2 (09:50→21:44)
[2021-04-15] MEDS: amLODIPine BESYLATE 10 MG TABLET (FP) PO SCH (09:50)
[2021-04-15] MEDS: LISINOPRIL 5 MG TABLET PO SCH (09:51)
[2021-04-15] MEDS: BACITRACIN 0.9 GM PACKET TP SCH (11:49)
[2021-04-15] MEDS ORDERED: INSULIN (NOVOLOG) ASPART 100 UNITS/ML 10ML VIAL ONE ×2 (11:53→16:48)
[2021-04-15] MEDS ORDERED: BACITRACIN 15 GM TUBE TOPICAL OINTMENT TP SCH (12:00)
[2021-04-15] MEDS: MELATONIN 5 MG TABLETS PO SCH (21:44)
[2021-04-15] MEDS: THIAMINE HCL 100 MG TABLET (FP) PO SCH (21:44)
[2021-04-15] MEDS: INSULIN (LEVEMIR) 100 UNITS/ML UNITS SQ SCH (21:50)
[2021-04-16] MEDS: GABAPENTIN 400 MG CAPSULE PO SCH (06:12)
[2021-04-16] MEDS: METHOCARBAMOL 750 MG TAB PO SCH (06:13)
[2021-04-16] MEDS: metFORMIN HCL 500 MG TABLET (FP) PO SCH (06:13)
[2021-04-16] MEDS: NICOTINE 10 MG CARTRIDGE (INHALER) IH PRN (06:16)
[2021-04-16] MEDS ORDERED: INSULIN (NOVOLOG) ASPART 100 UNITS/ML 10ML VIAL ONE (07:31)
[2021-04-16] MEDS: INSULIN SLIDING SCALE (NOVOLOG) 1 VIAL SQ SCH (07:49)
[2021-04-16 08:27] VITALS: BP 140/77; PULSE 71; TEMP 97.4
[2021-04-16] MEDS: amLODIPine BESYLATE 10 MG TABLET (FP) PO SCH (09:06)
[2021-04-16] MEDS: ASPIRIN 81 MG CHEWABLE TABLETS PO SCH (09:06)
[2021-04-16] MEDS: NAPROXEN 500 MG TABLET PO SCH (09:06)
[2021-04-16] MEDS: BACITRACIN 0.9 GM PACKET TP SCH (09:06)
[2021-04-16] MEDS: AMOXICILLIN 500 MG CAPSULE (FP) PO SCH (09:06)
[2021-04-16] MEDS: PRENATAL VITAMINS W/ FOLIC ACID TABLET (FP) PO SCH (09:07)
[2021-04-16] MEDS: BUPRENORPHINE/NALOXONE 12 MG-3 MG SL FILM PACKET SL SCH (09:07)
[2021-04-16] MEDS: LISINOPRIL 5 MG TABLET PO SCH (09:07)
== END 2021-04-16 09:25 | disposition home or self-care (01) | DRG 772 ==
LOC: YASAS 09:14 → Y3W 09:15
PROVIDERS: ADMIT Allergy & Immunology; ATTEND Allergy & Immunology
PROC: HZ42ZZZ Group Counseling for Substance Abuse Treatment, Cognitive-Behavioral (ICD-10-PCS; principal; 2021-03-30)
DX: F11.23 Opioid dependence with withdrawal (principal); F10.230 Alcohol dependence with withdrawal, uncomplicated; F13.230 Sedative, hypnotic or anxiolytic dependence with withdrawal, uncomplicated; F17.210 Nicotine dependence, cigarettes, uncomplicated; F41.9 Anxiety disorder, unspecified; F40.11 Social phobia, generalized; F19.24 Other psychoactive substance dependence with psychoactive substance-induced mood disorder; F19.280 Other psychoactive substance dependence with psychoactive substance-induced anxiety disorder; F19.282 Other psychoactive substance dependence with psychoactive substance-induced sleep disorder; N49.2 Inflammatory disorders of scrotum; K02.9 Dental caries, unspecified; M54.50 Low back pain, unspecified; K59.00 Constipation, unspecified; E11.9 Type 2 diabetes mellitus without complications
CPT/HCPCS: 36415; 82962; 85025; J0475